=== PATIENT | female | born 1990 | race American Indian/Alaskan Native ===

== ENCOUNTER 2019-09-28 11:22 | Emergency (ER) | payer BC ==
[2019-09-28 11:30] VITALS: BP 121/67
--- NOTE | 2019-09-28 11:59 | Emergency Department Report ---
ED Female HPI - General Chief complaint: Vaginal Bleeding Stated complaint: COMPLICATIONS AFTER MISCARRAGE Time Seen by Provider: 09/28/19 11:55 Source: patient, RN notes reviewed Mode of arrival: Ambulatory Limitations: No Limitations - History of Present Illness Initial comments: 29-year-old -Indian female presents to the emergency room complaining of complications from a miscarriage. Patient complains of vaginal bleeding. Patient reports she had a miscarriage on September 12 she saw her OB doctor on September 18 and was given misoprstol. She reports she completed her pills on Tuesday and 2 days later she started to have vaginal smell and continuation of vaginal bleeding. Patient denies any nausea vomiting but does report having some dep ressed mood as she is going to this miscarriage and recently lost her family member the next day after. Patient is requesting to be seen by mental health liaison inspection laboratory assistant Complaint: vaginal bleeding, vaginal discharge Onset/Timin -: days(s) Severity scale (0 -10): 4 Consistency: intermittent Improves with: none Worsens with: none Are you Now?: No (Recent miscarriage) Associated Symptoms: vaginal discharge. denies: nausea/vomiting, fever/chills, loss of appetite - Related Data Sexually active: Yes Previous Rx's Medication Instructions Recorded Last Taken Type metroNIDAZOLE [Flagyl] 500 mg PO Q12HR 7 Days #14 tab 09/28/19 Unknown Rx Allergies Allergy/AdvReac Type Severity Reaction Status Date / Time No Known Allergies Allergy Unverified 09/28/19 11:23 ED Review of Systems ROS: Stated complaint: COMPLICATIONS AFTER MISCARRAGE Other details as noted in HPI Comment: All other systems reviewed and negative ED Past Medical Hx - Past Medical History Previous Medical History?: No - Surgical History Hx Appendectomy: Yes Additional Surgical History: CSECTION - Social History Smoking Status: Current Every Day Smoker - Medications Home Medications: Home Medications Medication Instructions Recorded Confirmed Last Taken Type metroNIDAZOLE [Flagyl] 500 mg PO Q12HR 7 Days #14 tab 09/28/19 Unknown Rx ED Physical Exam - General Limitations: No Limitations General appearance: alert, in no apparent distress - Head Head exam: Present: atraumatic, normocephalic - Eye Eye exam: Present: normal appearance - ENT ENT exam: Present: mucous membranes moist - Neck Neck exam: Present: normal inspection, full ROM - Respiratory Respiratory exam: Present: normal lung sounds bilaterally. Absent: respiratory distress - Cardiovascular Cardiovascular Exam: Present: regular rate, normal rhythm. Absent: systolic murmur, diastolic murmur, rubs, gallop - GI/Abdominal GI/Abdominal exam: Present: soft, tenderness (Suprapubic pelvic). Absent: distended - External exam: Present: normal external exam Speculum exam: Present: vaginal discharge Bi-manual exam: Present: normal bi-manual exam. Absent: adnexal tenderness, adnexal mass - Extremities Exam Extremities exam: Present: normal inspection - Back Exam Back exam: Present: normal inspection, full ROM - Neurological Exam Neurological exam: Present: alert, oriented X3 - Psychiatric Psychiatric exam: Present: depressed - Skin Skin exam: Present: warm, dry, intact, normal color. Absent: rash ED Course Vital Signs 09/28/19 09/28/19 11:28 11:29 Temperature 98.5 F Pulse Rate 93 H Blood Pressure 121/67 [Left] O2 Sat by Pulse 98 Oximetry ED Medical Decision Making - Lab Data Result diagrams: 09/28/19 11:45 09/28/19 11:45 Laboratory Tests 09/28/19 09/28/19 09/28/19 11:45 11:45 11:45 WBC 6.7 RBC 4.10 Hgb 12.3 Hct 36.1 MCV 88 MCH 30 MCHC 34 RDW 13.5 Plt Count 267 Lymph % (Auto) 24.2 [place] % (Auto) 7.9 H Eos % (Auto) 2.0 Baso % (Auto) 0.3 Lymph # 1.6 [place] # 0.5 Eos # 0.1 Baso # 0.0 Seg Neutrophils % 65.6 Seg Neutrophils # 4.4 Sodium 137 Potassium 4.1 Chloride 102.2 Carbon Dioxide 21 L Anion Gap 18 BUN 8 Creatinine 0.6 L Estimated GFR > 60 BUN/Creatinine Ratio 13 Glucose 86 Calcium 9.5 HCG, Quant 2257 H Urine Color Urine Turbidity Urine pH Ur Specific [place] Urine Protein Urine Glucose (UA) Urine Ketones Urine Blood Urine Nitrite Urine Bilirubin Urine Urobilinogen Ur Leukocyte Esterase Urine WBC (Auto) Urine RBC (Auto) U Epithel Cells (Auto) Urine Mucus Blood Type 09/28/19 09/28/19 12:30 14:11 WBC RBC Hgb Hct MCV MCH MCHC RDW Plt Count Lymph % (Auto) [place] % (Auto) Eos % (Auto) Baso % (Auto) Lymph # [place] # Eos # Baso # Seg Neutrophils % Seg Neutrophils # Sodium Potassium Chloride Carbon Dioxide Anion Gap BUN Creatinine Estimated GFR BUN/Creatinine Ratio Glucose Calcium HCG, Quant Urine Color Yellow Urine Turbidity Clear Urine pH 6.0 Ur Specific [place] 1.018 Urine Protein <15 mg/dl Urine Glucose (UA) Neg Urine Ketones Neg Urine Blood Neg Urine Nitrite Neg Urine Bilirubin Neg Urine Urobilinogen 2.0 Ur Leukocyte Esterase Neg Urine WBC (Auto) 1.0 Urine RBC (Auto) 3.0 U Epithel Cells (Auto) 1.0 Urine Mucus 2+ Blood Type B POSITIVE - Radiology Data Radiology results: report reviewed Patient: CHRIS MORALES MR#: [id number] : 1990 Acct:[id number] Age/Sex: 29 / F ADM Date: 09/28/19 Loc: ED Attending Dr: Ordering Physician: RANI SIN Date of Service: 09/28/19 Procedure(s): US OB <= 14 weeks fetus Accession Number(s): [id number] cc: RANI SIN ULTRASOUND OBSTETRIC Indication: Pelvic pain and vaginal bleeding Findings: Transabdominal and transvaginal imaging is performed. The uterus measures 9.4 cm in length. The individual stripe measures 15 mm. There is a small fluid structure within the endometrial cavity but no pole or yolk sac is seen this could represent an early gestational sac. This would correlate to a 5 week 5 day gestation the right ovary measures 5.2 x 2.1 x 2.2 cm and is prominent in size but otherwise unremarkable. The left ovary measures 2.4 cm. Impression: There is a small fluid collection in the endometrial cavity. This is not specific. This could represent an early gestational sac. Correlation with serum beta hCG level is recommended. Short-term Follow-up ultrasound is recommended as clinically indicated. Signer Name: Rom Ernandez MD Signed: 09/28/2019 2:20 PM Workstation Name: [id number] Transcribed By: Dictated By: Rom Ernandez MD Electronically Authenticated By: Rom Ernandez MD Signed Date/Time: 09/28/19 1420 DD/ 1417 TD/TT: - Medical Decision Making 29-year-old -Indian female presents to the emergency room complaining of complications from a miscarriage. Patient complains of vaginal bleeding. Patient reports she had a miscarriage on September 12 she saw her OB doctor on September 18 and was given misoprstol. She reports she completed her pills on Tuesday and 2 days later she started to have vaginal smell and continuation of vaginal bleeding. Patient denies any nausea vomiting but does report having some depressed mood as she is going to this miscarriage and recently lost her family member the next day after. Patient is requesting to be seen by mental health liaison inspection laboratory assistant Urinalysis, hCG, CBC, BMP, type and screen, pelvic ultrasound concern for product of conception, pelvic exam, wet prep, gonorrhea and chlamydia. Offered pain medication patient declined. Spoke with Dr. Adenike Llamas at [phone] she recommends patient to make a follow-up appointment next week to their clinic. Instructed patient to take Tylenol as needed for pain management. Critical care attestation.: If time is entered above; I have spent that time in minutes in the direct care of this critically ill patient, excluding procedure time. ED Disposition Clinical Impression: Vaginal bleeding, Miscarriage within last 12 months, Grief associated with loss of fetus, Bacterial vaginosis Disposition: - TO HOME OR SELFCARE Is pt being admited?: No Does the pt Need Aspirin: No Condition: Stable Instructions: Spontaneous Miscarriage (ED), Bacterial Vaginosis (ED) Additional Instructions: Spoke with your [facility] clinic they recommend for you to follow-up next week in their clinic. I will treat you for bacterial infection. You can take Tylenol as needed for pain management. Prescriptions: metroNIDAZOLE [Flagyl] 500 mg PO Q12HR 7 Days #14 tab Referrals: PRIMARY CARE,MD [Primary Care Provider] - 3-5 Days You are, [employer] [Other] - 3-5 Days Forms: Work/School Release Form(ED), STI Treatment and Prevention
[2019-09-28 12:44] LABS: Basophils % (Auto) 0.3 % (0.0-1.8); Eosinophils # (Auto) 0.1 K/mm3 (0.0-0.4); Hematocrit 36.1 % (30.3-42.9); Hemoglobin 12.3 gm/dl (10.1-14.3); Lymphocytes # (Auto) 1.6 K/mm3 (1.2-5.4); Lymphocytes % (Auto) 24.2 % (13.4-35.0); Mean Corpuscular HGB Conc 34 % (30-34); Mean Corpuscular Volume 88 fl (79-97); Monocytes # (Auto) 0.5 K/mm3 (0.0-0.8); Monocytes % (Auto) 7.9 % (0.0-7.3); Platelet Count 267 K/mm3 (140-440); Red Cell Distribution Width 13.5 % (13.2-15.2)
[2019-09-28 12:46] LABS: Bilirubin,Urine NEG (Negative); Blood,Urine NEG (Negative); Color,Urine Yellow (Yellow); Mucus,Urine 2+ /HPF; Protein,Urine <15 mg/dL mg/dL (Negative)
[2019-09-28 12:58] LABS: BUN/Creatinine Ratio 13; Blood Urea Nitrogen 8 mg/dL (7-17); Calcium 9.5 mg/dL (8.4-10.2); Hemolysis Index 10
--- NOTE | 2019-09-28 14:25 | Ultrasound Report ---
ULTRASOUND OBSTETRIC Indication: Pelvic pain and vaginal bleeding Findings: Transabdominal and transvaginal imaging is performed. The uterus measures 9.4 cm in length. The individual stripe measures 15 mm. There is a small fluid st ructure within the endometrial cavity but no pole or yolk sac is seen this could represent an e diogo gestational sac. This would correlate to a 5 week 5 day gestation the right ovary measures 5.2 x 2.1 x 2.2 cm and is prominent in size but otherwise unremarkable. The left ovary measures 2.4 cm. Impression: There is a small fluid collection in the endometrial cavity. This is not specific. This could represe nt an early gestational sac. Correlation with serum beta hCG level is recommended. Short-term Follow- up ultrasound is recommended as clinically indicated. Signer Name: Rom Ernandez MD Signed: 09/28/2019 2:20 PM Workstation Name: [id number]
--- NOTE | 2019-09-28 15:22 | Ultrasound Report ---
TRANSABDOMINAL AND TRANSVAGINAL PELVIC ULTRASOUND INDICATION / CLINICAL INFORMATION: Pelvic pain and vaginal bleeding. Rule out retained products of conception. COMPARISON: None available. FINDINGS: Transabdominal: The uterus measures approximately 9.4 x 6.5 x 8.9 cm. The endometrial stripe is subop timally imaged. The left ovary measures 3.5 x 1.8 x 2.6 cm and the right ovary 3.2 x 2.9 x 4.7 cm. Th ere is no evidence of adnexal mass or free fluid. Transvaginal: The endometrial stripe measures 1.5 cm AP. There is a tiny amount of endometrial fluid without evidence of retained products of conception. No abnormal vascularity of the endometrium is se en on Doppler exam. Both ovaries demonstrate normal blood flow on Doppler exam. IMPRESSION: Minimal endometrial fluid without evidence of retained products of conception sonographic ally. Signer Name: Nolan Mendez MD Signed: 09/28/2019 3:17 PM Workstation Name: [id number]
== END 2019-09-28 15:20 | disposition home or self-care (01) ==
LOC: ED 11:22
DX: O03.80 Unspecified complication following complete or unspecified spontaneous abortion (principal); O26.891 Other specified pregnancy related conditions, first trimester; O99.331 Smoking (tobacco) complicating pregnancy, first trimester; Z3A.01 Less than 8 weeks gestation of pregnancy; Z79.899 Other long term (current) drug therapy; Z98.890 Other specified postprocedural states
CPT/HCPCS: 36415; 76801; 76817; 80048; 81001; 84702; 85025; 86850; 86900; 86901; 87210